=== PATIENT | male | born 1995 | race African-American/Black ===

== ENCOUNTER 2018-03-03 01:58 | Emergency (ER) | payer SELFPAY ==
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
[2018-03-03 02:10] VITALS: BP 128/77
== END 2018-03-03 02:53 | disposition home or self-care (01) ==
LOC: EEVIPCON 01:58
DX: S09.90XA Unspecified injury of head, initial encounter (principal); F17.200 Nicotine dependence, unspecified, uncomplicated; Y04.0XXA Assault by unarmed brawl or fight, initial encounter